=== PATIENT | female | born 1980 | race Caucasian/White ===

== ENCOUNTER 2022-03-29 17:04 | Outpatient (CLI) | payer OTHER, SELFPAY ==
--- NOTE | ~2022-03-29 | MM_ITS ---
EXAMINATION: MM screening gio BI w doug HISTORY: Screening mammogram TECHNIQUE: Craniocaudal and mediolateral oblique 3-D tomosynthesis images were obtained and synthetic 2-D images were generated. CAD analysis was submitted and interpreted. COMPARISON: No prior mammogram is available for comparison at this institution. BREAST PARENCHYMAL COMPOSITION: The breasts are almost entirely fatty. FINDINGS: There is no evidence of suspicious mass, calcification, or architectural distortion to sugg est malignancy in either breast. IMPRESSION: 1. No mammographic evidence of malignancy. 2. Recommend routine screening mammography in one year. BI-RADS Category 1: Negative Reviewed, dictated and finalized at location A.
== END 2022-03-29 17:05 | disposition home or self-care (01) ==
LOC: ANHIMG 17:06
PROVIDERS: Visit Provider Obstetrics & Gynecology
DX: Z12.31 Encounter for screening mammogram for malignant neoplasm of breast (principal)
CPT/HCPCS: 77063; 77067

== ENCOUNTER 2023-09-27 14:55 | Outpatient (CLI) | payer OTHER, SELFPAY ==
--- NOTE | ~2023-09-27 | MM_ITS ---
EXAMINATION: MM screening gio BI w doug HISTORY: Screening mammogram TECHNIQUE: Craniocaudal and mediolateral oblique 3-D tomosynthesis images were obtained and synthetic 2-D images were generated. CAD analysis was submitted and interpreted. COMPARISON: 03/19/2022 BREAST PARENCHYMAL COMPOSITION: There are scattered areas of fibroglandular density. FINDINGS: RIGHT BREAST: No suspicious mass, calcification, or architectural distortion are identified to sugges t malignancy. There has been no suspicious interval change. LEFT BREAST: An asymmetry is present in the far posterior third of the breast below the nipple axis o n the mediolateral oblique view. IMPRESSION: 1. Left breast asymmetry. 2. Additional mammographic views and possible breast ultrasound are recommended. BI-RADS Category 0: Incomplete: Needs additional imaging evaluation. Reviewed, dictated and finalized at location A. TY STRUCTURER IMPRESSION: 1. Left breast asymmetry. 2. Additional mammographic views and possible breast ultrasound are recommended . BI-RADS Category 0: Incomplete: Needs additional imaging evaluation.
== END 2023-09-27 14:56 | disposition home or self-care (01) ==
LOC: ANHIMG 14:58
PROVIDERS: Visit Provider Obstetrics & Gynecology
DX: Z12.31 Encounter for screening mammogram for malignant neoplasm of breast (principal); R92.8 Other abnormal and inconclusive findings on diagnostic imaging of breast
CPT/HCPCS: 77063; 77067

== ENCOUNTER 2023-11-05 10:20 | Outpatient (CLI) | payer OTHER, SELFPAY ==
--- NOTE | ~2023-11-05 | MM_ITS ---
EXAMINATION: MM diagnostic gio LT w doug HISTORY: Left breast asymmetry reported in the posterior third of the breast below the nipple axis an d screening MLO view of September 27, 2023 TECHNIQUE: Additional 3-D tomosynthesis images of the left breast were performed and synthetic 2-D im ages were generated. CAD analysis was submitted and interpreted. COMPARISON: September 27, 2023, March 29ilateral screening mammogram examinations FINDINGS: No suspicious mass, architectural distortion, malignant calcification, skin thickening or r etraction is detected. In particular, the area of interest reported on the screening mammogram of Sep is not duplicated on the cone compression MLO view. IMPRESSION: 1. No mammographic evidence of malignancy 2. Routine annual mammographic screening is recommended BI-RADS Category 1: Negative Reviewed, dictated and finalized at location A.
== END 2023-11-05 10:21 | disposition home or self-care (01) ==
PROVIDERS: Visit Provider Obstetrics & Gynecology
DX: R92.8 Other abnormal and inconclusive findings on diagnostic imaging of breast (principal)
CPT/HCPCS: 77061; 77065; G0279

== ENCOUNTER 2025-06-16 15:55 | Outpatient (CLI) | payer OTHER, SELFPAY ==
--- NOTE | ~2025-06-16 | MM_ITS ---
EXAMINATION: MM screening gio BI w doug HISTORY: Screening TECHNIQUE: Craniocaudal and mediolateral oblique 3-D tomosynthesis images were obtained and synthetic 2-D images were generated. CAD analysis was submitted and interpreted. COMPARISON: Comparison to multiple prior studies sequentially, with oldest reviewed study dated , 03/29/2022 BREAST PARENCHYMAL COMPOSITION: The breasts are almost entirely fatty. FINDINGS: There is no evidence of suspicious mass, calcification, or architectural distortion to suggest malignancy in either breast. IMPRESSION: 1. No mammographic evidence of malignancy. 2. Recommend routine screening mammography in one year. BI-RADS Category 1: Negative Reviewed, dictated and finalized at location B. O DEVELOPER
--- OUTSIDE RECORDS SUMMARY | 2025-06-17 15:08 | XMS_ITS | Clinical Summary ---
Author Organization [facility] Address [address] [place] [address] Care Team Providers Care Trouble Tracer Name Role Phone Haylee Guido RN Unavailable Unavailab le Source Comments [facility],non-owned Affiliates and Associated Physician Practices is amultiple site organization consisting of ambulatory clinics and hospital sitesin [place], [place], [place] and [place]. This disclosure is being madepursuant to the Care Everywhere program and may not contain all information available regarding this patient. Last updated 18.[facility] Allergies No known active allergies Medications * Be aware that medications may not be up to date on this document. Alwaysverify current medications with the patient. Vit-Fe Fumarate-FA ( VITAMIN) 28-0.8 MG tablet Take 1 Tab by mouth once daily Active metFORMIN (GLUCOPHAGE) 500 MG tablet Take 500 mg by mouth 2 times daily with morning and evening meal Active oxyCODONE-aceta minophen (PERCOCET) 5-325 MG tablet Take 1 Tab by mouth every 6 hours as needed for Pain 10 Tab 04/05/2017 Active Active Problems Problem Noted Date Diagnosed Date History of delivery 04/03/2017 History of cerclage, currently 03/05/20 17 Incompetent cervix 03/05/2017 AMA (advanced maternal age) multigravida 35+ Supervision of high risk in first trim royal 03/05/2017 Immunizations Immunization Administration Dates Next Due INFLUENZA VACCINE, QUADR. (F LUZONE; FLULAVAL; FLUARIX; AFLURIA QUADRIVALENT; 6MO+), 0.5 ML (IIV4) 05/25/2017 Family History Medical History Relation Name Comments Hypertension Father Cancer - Colon Maternal Grandfather Diabetes - Type 1 Maternal Grandfather Hypertension Maternal Grandfather Cancer - Ovarian Maternal Grandmother Hypertension Paternal Grandfather Relation Name Status Comments Father Maternal Grandfather Maternal Grandmother Paternal Grandfather Social History Tobacco Use Types Packs/Day Years Used Date Smoking Tobacco: Never Smokeless Tobacco: Never Tobacco Cessation:Counseling Given: Yes Alcohol Use Standard Drinks/Week Comments No 0 (1 standard drink = 0.6 oz pur e alcohol) Comments No Sex and Gender Information Value Date Recorded Sex Assigned at Not on file Legal Sex Female 5:36 AM DIRECTOR OF INSTRUCTION Gender Identity Female 04/05/2017 10:36 AM CDT Sexual Orientation Not on file Last Filed Vital Signs Vital Sign Reading Time Taken Comments Blood Pressure 103/66 04/05/2017 5:45 PM CDT Pulse 77 04/05/2017 5:45 PM CDT Temperature 36.8 C (98.3 F) 04/05/2017 5:45 PM CDT Respiratory Rate 14 04/05/2017 5:45 PM CDT Oxygen Saturation 100% 04/05/2017 5:45 PM CDT Inhaled Oxygen Concentration - - Weight 71.2 kg (157 lb) 04/05/2017 11:02 AM CDT Height 154.9 cm (5' 1) 04/05/2017 11:02 AM CDT Body Mass Index 29.66 04/05/2017 11:02 AM CDT Plan of Treatment Health Maintenance Due Date Last Done Comments LIPID TESTING 1980 MAMMOGRAM 1980 HIV SCREENING 1995 HEPATITIS C SCREENING 06/26/1998 DTAP/TDAP/TD VACCINES (1 - Tdap) 1999 HEPATITIS B VACCINE (1 of 3 - 19+ 3-dose series) 1999 HPV VACCINE (1 - 3-dose SCDM series) 2007 DEPRESSION SCREENING 08/12/2024 COVID-19 VACCINE (1 - 2023-2 5 season) 2025 INFLUENZA VACCINE (#1) 2025 05/25/2017 ZOSTER VACCINE (1 of 2) 2030 HIB VACCINE Aged Out No longer eligi ble based on patient's age to complete this topic MENINGOCOCCAL (Group B) VACC INE SHARED DECISION-MAKING Aged Out No longer eligibl e based on patient's age to complete this topic MENINGOCOCCAL GROUPS A/C/Y/W VACCINE Aged Out No longer eligible b ased on patient's age to complete this topic PNEUMOCOCCAL VACCINE Aged Out No long er eligible based on patient's age to complete this topic Insurance [facility] Advance Directives * Full Code (Latest Code Status on File) Date Activated Date Inactivated Comments 04/05/2017 2:24 PM 04/05/2017 7:48 PM * Full Code Date Activated Date Inactivated Comments 03/29/2017 11:41 AM 03/29/2017 2:56 PM Care Teams Trouble Tracer Relationship Specialty Start Date End Date Haylee Guido RN Registered Nurse 04/05/17
--- OUTSIDE RECORDS SUMMARY | 2025-06-17 15:08 | XMS_ITS | Clinical Summary ---
Author Organization [address] Address [address] [place] [id number] Care Team Providers Care Licensed Psychologist Manager Name Role Phone Unknown, Notinfile Primary Care Provider Unavail able Allergies No known active allergies Medications Tri-Sprintec, 28, 0.18/0.215/0.25 mg-35 mcg (28) per tablet Take 1 tablet by mouth daily 3 Active albuterol HFA (PROVENTIL HFA,VENTOLIN HFA,PROAIR HFA) 90 mcg/actuation inhalerIndicatio ns:Lower respiratory infection (e.g., bronchitis, pneumonia, pneumonitis, pulmonitis) Inhale 2 puffs every 6 (six) hours as needed for wheezing or shortness of breath 1 each 3 Active benzonatate (TESSALON) 200 mg capsuleIndicatio ns:Lower respiratory infection (e.g., bronchitis, pneumonia, pneumonitis, pulmonitis) Take 1 capsule (200 mg total) by mouth 3 (three) times a day as needed for cough 30 capsule 3 Active azithromycin (ZITHROMAX) 250 mg tabletIndication s:Lower respiratory infection (e.g., bronchitis, pneumonia, pneumonitis, pulmonitis) Take 2 tablets the first day, then 1 tablet daily for 4 days. 6 tablet 3 Active Active Problems No known active problems Social History Tobacco Use Types Packs/Day Years Used Date Smoking Tobacco: Never Personal Safety Answer Date Recorded Getting School Help Needed Not on file 08/19 Comments Unknown Sex and Gender Information Value Date Recorded Sex Assigned at Not on file Legal Sex Female 9:30 AM CDT Gender Identity Not on file Sexual Orientation Not on file Last Filed Vital Signs Vital Sign Reading Time Taken Comments Blood Pressure 108/70 03/23/2024 12:02 PM CDT Pulse 80 03/23/2024 12:02 PM CDT Temperature 37 C (98.6 F) 03/23/2024 12:02 PM CDT Respiratory Rate 20 03/23/2024 12:02 PM CDT Oxygen Saturation 100% 03/23/2024 12:02 PM CDT Inhaled Oxygen Concentration - - Weight 77.1 kg (170 lb) 03/23/2024 12:02 PM CDT Height 160 cm (5' 3) 03/23/2024 12:02 PM CDT Body Mass Index 30.11 03/23/2024 12:02 PM CDT Plan of Treatment Health Maintenance Due Date Last Done Comments Breast Cancer Screening-Mammogram 1980 Cervical Cancer Screening 1980 Depression Screening 1980 Hepatitis C Screening 1980 Varicella Vaccines (1 of 2 - 13+ 2-dose series) 1993 Hepatitis B Screening 1998 Regular Well Visit/Exam 18-64 1998 HPV Vaccines (1 - 3-dose SCD M series) 2007 Covid-19 Vaccine (3 - 2024-2 6 season) 2025 08/15/2021, 10/25/2020 Influenza Vaccine (#1) 2025 , 07/02/2018, 05/25/2017 DTaP/Tdap/Td Vaccine (2 - Td or Tdap) 08/09/2027 08/09/2017 Pneumococcal vaccine <65 Aged Out No longer eligible based on patient's age to complete this topic Insurance [facility] Address: [place] [id number] Address: [place] [address] [facility] Address: [place] [address] Care Teams Licensed Psychologist Manager Relationship Specialty Start Date End Date Unknown, Notinfile PCP - General 03/23/24
== END 2025-06-16 15:56 | disposition home or self-care (01) ==
LOC: ANHFOHIMG 16:02
PROVIDERS: Visit Provider Obstetrics & Gynecology
DX: Z12.31 Encounter for screening mammogram for malignant neoplasm of breast (principal)
CPT/HCPCS: 77063; 77067